=== PATIENT | female | born 1930 | race Caucasian/White ===

== ENCOUNTER → 2017-02-21 | Day surgery (SDC) | payer MEDICARE ==
[~2017-02-21] MED LIST: AMLO5TAB96 PO; ATEN1TAB74 PO; ATROPINE SULFATE 1% OPHT SOLN 5 ML BTL ONE; COZA100T PO; DEXAMETHASONE SOD PHOS 4 MG/ML VIAL ONE; EPINEPHrine HCL (1:1000) 1 MG/ML VIAL ONE; FLON0.053; HYALURONIDASE/LIDOCAINE/BUPIVACAINE 11 ML SYR TL ONE; KETOROLAC TROMETHAMINE 0.5% OPHT SOLN 5 ML BTL ONE; KETOROLAC TROMETHAMINE 30 MG/ML (IVP) VIAL ONE; LACTATED RINGER'S 1000 ML INJ 1,000 ML ONE; NEOMYCIN/POLYMYXIN/DEXAMETHASONE OPTH OINT 3.5 GM TUBE ONE; OMEP20TA PO; PHENYLEPHRINE HCL 2.5 % OPTH SOLN 15 ML BTL ONE; PROPOFOL 100 MG/10 ML INJ IV ONE; RIVA10 OR; SODIUM CHLORIDE 0.9% INJ 10 ML ONE; TETRACAINE 0.5% OPTH SOLN 15 ML BTL ONE; TROPICAMIDE 1% OPHT SOLN 15 ML BTL ONE; VICO7.5T PO; ceFAZolin INJ 1,000 MG VIAL ONE
--- NOTE | 2017-03-04 18:19 | MP ---
cc: JOHN DAVIS MD DATE OF SURGERY: 02/21/2017. PREOPERATIVE DIAGNOSIS: Retinal detachment, right eye. POSTOPERATIVE DIAGNOSIS: Retinal detachment, right eye. OPERATION: Pars plana vitrectomy, endolaser gas/fluid exchange, right eye. SURGEON: John Davis MD ANESTHESIA: MAC. COMPLICATIONS: None. DESCRIPTION OF THE PROCEDURE IN DETAIL: After informed consent was obtained, the patient was given retrobulbar anesthesia. She was then brought to the operating room and prepared and draped in the usual sterile fashion. A wire lid speculum was placed in the patient's right eye. 23-gauge vitrectomy cannulas were then placed in the lower temporal, superotemporal and supranasal quadrants 3 mm posterior to the corneoscleral limbus. An infusion cannula was placed lower temporally. Core vitrectomy was then performed. There was already a posterior vitreous detachment. A vitrectomy was carried out as far as possible to the vitreous base taking care to remove vitreous from around the retinal break. A complete air-fluid exchange was then performed through a posterior retinotomy. The retina flattened nicely. Endolaser was used to treat the retinal breaks as well as the vitreous base for 360 degrees and the retinotomy. The air was then exchanged for a 16% C3F8. The three vitrectomy cannulas were then removed. Subconjunctival injections of dexamethasone and Ancef were placed. An Atropine drop, Maxitrol and a patch and shield were then applied. The patient tolerated the procedure well. There were no complications. She will position appropriately over the next week. [facility]. John Davis MD TAB/JCC /1:21 PM /6:16 PM
== END | disposition home or self-care (01) ==
LOC: ESDC 14:01
PROVIDERS: ATTEND Ophthalmology Retina Specialist
DX: H33.21 Serous retinal detachment, right eye (principal)
CPT/HCPCS: 00145; 67108; J0171; J0690; J1100; J1885; J7120